=== PATIENT | male | born 1955 | race Caucasian/White ===

== ENCOUNTER 2017-07-01 06:08 | Day surgery (SDC) | payer OTHER ==
--- NOTE | 2017-06-26 22:04 | PDHPUP ---
History & Physical Update H&P update statement: This history and physical update is based on an assessment of the patient which was completed after admission or registration (within 24 hours), but prior to the surgery/procedure. H&P update: H&P reviewed & patient examined, no change in patient's condition since H&P completed
--- NOTE | 2017-06-26 22:26 | GHP ---
[f rep st] HISTORY AND PHYSICAL DATE OF ADMISSION: 07/01/2017 COMPLAINT: Right shoulder weakness. HISTORY OF PRESENT ILLNESS: The patient is a 62-year-old male who has recently undergone a right sherry ulder hemiarthroplasty. He initially did well. After developing weakness after recent fall while hu nting, he had fell directly onto the right shoulder, had severe pain and was unable to lift his arm. CT arthrograms revealed a rotator cuff tear. He wishes to have surgery in order to resolve the prob [place]. ALLERGIES: He lists no prior drug allergies. CURRENT MEDICATIONS: Include tamsulosin, terbinafine, tramadol and warfarin. PRIOR MEDICAL PROBLEMS: Include arthritis. PRIOR SURGERIES: Right shoulder surgery x2. SOCIAL HISTORY: He has never been a smoker. He is a social drinker. PHYSICAL EXAM: HEENT: The patient's pupils are equal, round, and reactive to light. CHEST: Clear to auscultation. HEART: Regular rate and rhythm. ABDOMEN: Soft and nontender. EXTREMITIES: He h as decreased range of motion through the shoulder secondary to his prior arthroplasty as well as havi ng weakness significantly to external rotation and supraspinatus. ASSESSMENT AND PLAN: The patient is status post a right rotator cuff tear after right shoulder hemia rthroplasty. Plan is to take him to the operating room, and undergo a right shoulder scope with rota tor cuff repair. /[id number]/MODL
[~2017-07-01 06:08] MED LIST: ACETAMINOPHEN 500 MG TAB PO ONE; PREGABALIN 150 MG CAP PO ONE; ceFAZolin 2 GM/SWFI 2 GM/20 ML SYR IVP ONE
[2017-07-01] MEDS ORDERED: LR 1,000 ML IV ONE (06:12)
[2017-07-01] MEDS ORDERED: LIDOCAINE 1% 2 ML INJ ID PRN (06:12)
[2017-07-01] MEDS ORDERED: PROPOFOL 200 MG/20 ML VIAL ONE ×2 (06:20→08:55)
[2017-07-01] MEDS ORDERED: fentaNYL 100 MCG/2 ML INJ ONE (06:20)
[2017-07-01] MEDS ORDERED: LIDOCAINE 2% 100 MG/5 ML SYR ONE (06:21)
[2017-07-01] MEDS ORDERED: ROCURONIUM 50 MG/5 ML VIAL ONE (06:21)
[2017-07-01] MEDS ORDERED: clonIDINE 1 MG/10 ML VIAL EP ONE (06:21)
[2017-07-01] MEDS ORDERED: ROPIVACAINE HCL 150 MG/30 ML INJ ONE (06:23)
[2017-07-01] MEDS ORDERED: MIDAZOLAM 2 MG/2 ML VIAL IVP ONE (06:37)
--- NOTE | 2017-07-01 06:37 | PDANEPAE ---
ANE History of Present Illness here for R shoulder surgery, rotator cuff repair ANE Past Medical History - Cardiovascular History Hx Hypertension: No Hx Arrhythmias: No Hx Chest Pain: No Hx Coronary Artery / Peripheral Vascular Disease: No Hx CHF / Valvular Disease: No Hx Palpitations: No - Pulmonary History Hx COPD: No Hx Asthma/Reactive Airway Disease: No Hx Recent Upper Respiratory Infection: No Hx Oxygen in Use at Home: No Hx Sleep Apnea: Yes Sleep Apnea Screening Result - Last Documented: Positive - Neurologic History Hx Cerebrovascular Accident: No Hx Seizures: No Hx Dementia: No - Endocrine History Hx Diabetes: No - Renal History Hx Renal Disorders: Yes Renal History Comment: BPH, ED - Liver History Hx Hepatic Disorders: No - Neurological & Psychiatric Hx Hx Neurological and Psychiatric Disorders: No - Cancer History Hx Cancer: No - Congenital Disorder History Hx Congenital Disorders: No - GI History Hx Gastrointestinal Disorders: No - Other Health History Other Health History: arthritis, degenerative disc disease - Chronic Pain History Chronic Pain: No - Surgical History Prior Surgeries: right shoulder replacement. lumbar spine surgery ANE Review of Systems Review of Systems: - Exercise capacity METS (RN): 4 METS ANE Patient History - Allergies Allergies/Adverse Reactions: No Known Allergies Allergy (Unverified 02/27/15 18:08) - Home Medications Home Medications: Herbals/Supplements -Info Only 1 ea PO DAILY 02/28/15 [Last Taken 06/24/17] Ibuprofen [Advil] 200 - 600 mg PO HS PRN 02/28/15 [Last Taken 06/28/17] Multivitamins [Multivitamin (*)] 1 each PO DAILY 02/28/15 [Last Taken 06/24/17] Tadalafil [Cialis] 10 mg PO PRN PRN 02/28/15 [Last Taken 06/17/17] traMADol [Ultram 50 mg (*)] 50 mg PO HS 02/28/15 [Last Taken 02/27/15] Tamsulosin HCl 20 mg 06/18/17 [Last Taken 06/30/17] Acetaminophen [Acetaminophen Extra Strength] PRN 07/01/17 [Last Taken 06/30/17] Loratadine/Pseudoephedrine [Claritin-D 24 Hour Tablet] 07/01/17 [Last Taken 09/12] - NPO status NPO Status: no food or drink >8 hours - Anes Hx Anes Hx: no prior problems - Smoking Hx Smoking Status: Never smoked - Alcohol Use Alcohol Use: Rarely - Family Anes Hx Family Anes Hx: none Family Hx Anesthesia Complications: none ANE Labs/Vital Signs - Vital Signs Vital Signs: reviewed preoperatively; see RN documention for details Height: 182.88 cm Weight: 117.027 kg ANE Physical Exam - Airway Neck exam: FROM Mallampati Score: Class 2 Mouth exam: normal dental/mouth exam - Pulmonary Pulmonary: no respiratory distress, clear to auscultation - Cardiovascular Cardiovascular: regular rate and rhythym, no murmur, rub, or gallop - ASA Status ASA Status: II ANE Anesthesia Plan Anesthesia Plan: general endotracheal anesthesia Regional Anesthesia: single shot NB, interscalene BP NB
[2017-07-01 06:43] VITALS: PULSE 93
[2017-07-01] MEDS ORDERED: BUPIVACAINE/EPI 0.5% 30 ML SDV ONE (06:59)
[2017-07-01] MEDS ORDERED: THROMBIN (BOVINE) 5,000 UNIT VIAL TP ONE (07:48)
[2017-07-01] MEDS ORDERED: CALCIUM CHLORIDE 1 GM/10 ML INJ ONE (07:48)
[2017-07-01] MEDS ORDERED: ONDANSETRON 4 MG/2 ML VIAL ONE (08:18)
[2017-07-01] MEDS ORDERED: DEXAMETHASONE 4 MG/ML VIAL ONE (08:18)
[2017-07-01] MEDS ORDERED: SUGAMMADEX SODIUM 200 MG/2 ML VIAL IVP ONE (09:10)
[2017-07-01] MEDS ORDERED: HYDROCODONE/APAP 5/325 TAB PO PRN (09:24)
[2017-07-01] MEDS ORDERED: ACETAMINOPHEN 325 MG TAB PO PRN (09:24)
[2017-07-01] MEDS ORDERED: ONDANSETRON 4 MG/2 ML VIAL IVP PRN ×2 (09:24→09:29)
--- NOTE | 2017-07-01 09:24 | POSTOPPROG ---
Post Op Note Date of Operation: 07/01/17 Surgeon: Melody Dale Parole Agent: jamila Anesthesiologist: elijah Anesthesia: LMA, Other (Specify) Pre-op Diagnosis: r shoulder impingement with rct Procedure: r shoulder scope with sad/dce/rcr Inf/Abcess present in the surg proc area at time of surgery?: No Depth: Deep Incisional (Fascial) EBL: 50-100
[2017-07-01] MEDS ORDERED: PROMETHAZINE HCL 25 MG/ML INJ IVP PRN (09:29)
[2017-07-01] MEDS ORDERED: fentaNYL 100 MCG/2 ML INJ IVP PRN (09:29)
[2017-07-01] MEDS ORDERED: NALOXONE HCL 0.4 MG/ML INJ IVP PRN (09:29)
[2017-07-01] MEDS ORDERED: ACETAMINOPHEN 500 MG TAB PO PRN (09:29)
[2017-07-01] MEDS ORDERED: OXYCODONE/APAP 5/325 TAB PO PRN (09:29)
--- NOTE | 2017-07-01 09:29 | POSTANESTH ---
Post Anesthetic Evaluation Cardiovascular Status: Normal, Stable, Similar to Pre-Op Cond Respiratory Status: Normal, Stable, Similar to Pre-op Cond. Level of Consciousness/Mental Status: Can Participate in Eval, Alert and Oriented Pain Control: Adequate, Prn Tx Ordered Nausea/Vomiting Control: Adequate, Prn Tx Ordered Complications Possibly Related to Anesthesia: None Noted
[2017-07-01 10:06] VITALS: RESP 14
[2017-07-01 10:24] VITALS: TEMP 97
--- NOTE | 2017-07-01 11:33 | GOP ---
[f rep st] OPERATIVE REPORT DATE OF OPERATION: 07/01/2017 SURGEON: Melody Dale MD PREOPERATIVE DIAGNOSIS: Right shoulder impingement syndrome with rotator cuff tear. POSTOPERATIVE DIAGNOSIS: Right shoulder impingement syndrome with rotator cuff tear. PROCEDURE PERFORMED: Right shoulder arthroscopy, with subacromial decompression, distal clavicle exc ision and rotator cuff repair x1. FINDINGS: INDICATIONS: This is a 62-year-old male, previously undergone a right shoulder hemiarthroplasty appr oximately 2 years ago. Initially did well. Over the last 3 months after a fall, he started to have w eakness and pain into the shoulder. CT arthrogram revealed a hole in his rotator cuff. He would like to have surgery in order to resolve the problem. DESCRIPTION OF PROCEDURE: Patient brought to the operating room after the right side had been identi fied as the correct side by the patient, nurse and physician. Once in the operating room, he had a sc richardson block placed on the right side per surgeon's request and then underwent general anesthesia usin g LMA. Once asleep, he was placed in a beach chair position with the right upper extremity sterilely prepped and draped in the usual fashion using GSI solution. Once prepped and draped, an incision was made over the posterolateral corner of the acromion with the camera introduced without difficulty. I nspection of the joint revealed no loose bodies. There was an abundant amount of scar tissue within the shoulder as would be expected with the capsular flap remaining intact along the glenoid. Once com pleted, the instruments were removed from the glenohumeral joint and reintroduced in subacromial spac e. A third incision was made 2 cm lateral to the acromial process in line with the posterior cortex of the clavicle and, alternating using arthroscopic Bovie tip and a shaver, was used to remove the ab undant amount of inflammatory tissue within the subacromial space. Camera switched to the lateral po rtal and alternating, using arthroscopic Bovie tip and a shaver, was used to remove the soft tissue f rom the undersurface of the acromion. He was noted to have a short, sharp inferior spur and this was removed using acromionizer bur until achieving a flat ceiling. Attention was then turned to the dista l clavicle that was also noted to have a short, sharp inferior spur and this was also removed using a combination shaver and bur. Once completed, the camera was switched back to the posterior portal. I nspection of the greater tuberosity revealed a small tear at the posterior half of the greater tubero sity. The hole was debrided and found to be less than a centimeter in diameter. The bone was eburnat ed around it. Suture was woven into the anterior and posterior portions of the rotator cuff tear with #2 FiberWire. They were pulled taut bringing it over the eburnated bone. Secondary to the metal imp lanted head within the humerus, had to be very selective about where the anchor was being placed; it had to be placed distal to the greater tuberosity along the shaft at a 45 degree angle secondary to t he metal inside. Once the area was able to be found using a probe, a 5.5 mm Charuenne anchor was put in to place, noted to fit securely. Sutures were cut short. All instruments were then removed from the shoulder with 30 cc of Marcaine infused in shoulder joint. The 3 portal sites were closed using 3-0 Nylon suture in a fcmpal-di-anrbu type stitch and then plasma gel was placed in the subacromial space . Once completed, the wounds were dressed with Xeroform, 4 x 4, and Tegaderm. He was completely und raped in the operating room, had the right upper extremity placed in a shoulder immobilizer. He was then woken up, extubated, transferred onto a bed, and sent to recovery room in good condition. /[id number]/MODL
--- NOTE | 2017-07-01 13:31 | PDHOMEO2F ---
Home Oxygen Face to Face Home Orders: I certify that a physician or a nurse practitioner or physician's clinical education assistant has had a daba-am-pyip encounter with this patient on the date of this order due to the diagnosis listed, which relates to the primary reason the patient requires home oxygen. Alternative treatments have been tried, or considered, and deemed ineffective. It is anticipated that supplemental oxygen will result in improvement with treatment. Home oxygen qualifying diagnosis: HYPOXIA Home oxygen secondary diagnosis: OBSTRUCTIVE SLEEP APNEA SpO2 on room air (%): 84 Frequency of home oxygen needed: continuous Home oxygen liters per minute: 2-6 Home oxygen delivery device: nasal cannula Concentrator: Yes E-tanks for mobility and back up: Yes If ordering portable O2, is the patient mobile in the home?: Yes I certify that, based on these findings, the home oxygen is medically necessary for this patient for the following length of time. Length of time home oxygen needed: 1 week (LIKELY ONLY NECESSARY FOR 24-36 HOURS )
[2017-07-01 13:39] VITALS: BP 106/67; O2SAT 93
== END 2017-07-01 13:43 | disposition home or self-care (01) ==
LOC: FSGY 06:08
PROVIDERS: ATTEND Orthopaedic Surgery
PROC: 0LQ14ZZ Repair Right Shoulder Tendon, Percutaneous Endoscopic Approach (ICD-10-PCS; principal; 2017-07-01 07:15)
PROC: 0RBJ4ZZ Excision of Right Shoulder Joint, Percutaneous Endoscopic Approach (ICD-10-PCS; principal; 2017-07-01 07:15)
PROC: 0PB94ZZ Excision of Right Clavicle, Percutaneous Endoscopic Approach (ICD-10-PCS; principal; 2017-07-01 07:15)
DX: S46.091A Other injury of muscle(s) and tendon(s) of the rotator cuff of right shoulder, initial encounter (principal); M75.41 Impingement syndrome of right shoulder; W19.XXXA Unspecified fall, initial encounter; Y93.69 Activity, other involving other sports and athletics played as a team or group; Z96.611 Presence of right artificial shoulder joint; G47.33 Obstructive sleep apnea (adult) (pediatric)
CPT/HCPCS: C1713; J0171; J0690; J0735; J1100; J2001; J2250; J2405; J2704; J2795; J3010